=== PATIENT | female | born 1960 | race Caucasian/White ===

== ENCOUNTER 2017-11-29 06:37 | Day surgery (SDC) | payer OTHER, SELFPAY ==
[2017-11-19 10:21] VITALS: BMI 27.3
[2017-11-29] VITALS (8 sets, daily range): BP systolic 114–136; BP diastolic 69–76; PULSE 68–95; RESP 14–20; TEMP 36.2–36.6; O2SAT 94–99; BMI 27.3
[2017-11-29] MEDS: LACTATED RINGERS 1,000 ML 42 ML IV ×2 (07:21→09:21)
--- NOTE | 2017-11-29 07:37 | PM.PREOP ---
Pre-operative Note Interval Note Pre-op Check: Yes History & Physical Reviewed by Physician Changes: No
--- NOTE | 2017-11-29 07:39 | P.OP_ITS ---
Operative Date/Time/Diagnoses Date of procedure: 11/29/17 Pre-op diagnosis: Left hallux abductovalgus with bunion, great toe arthritis, second and third hammertoes Post-op diagnosis: same Procedure & Clinicians Surgeon: Amy Farooq Click Yes if Unassisted: Yes Operative Notes Findings: Closure Type: primary Specimen(s): none sent Implants & Drains: [place] Medium MTP plate, 4.2 and 3.5 screws, 0.054 k-wires x2 MTF 1cc DBX putty 3-4, 4-0 vicryl, 3-0, 4-0 nylon Estimated Blood Loss (mL): 30 Blood products transfused: none Procedure in detail: The patient was brought to the operating room and placed on the operative table in the supine position well-padded and appropriately aligned. A tourniquet was placed about the patient's left thigh. After induction of general anesthesia the foot and ankle were prepped and draped in the usual aseptic manner. After a check of anesthesia the TQ was inflated and an incision was made over the first metatarsophalangeal joint. The incision was deepened through subcutaneous tissues being careful to identify and retract all neuro and vascular structures. All bleeders were cauterized and ligated as necessary. First MTPJ release was performed to allow for mobility of the joint. Significant loss of cartilage was noted to the 1st metatarsal head and to the base of the proximal phalanx. A Reamer set was used to remove the cartilage on either side and it was noted that there was some softening of the bone on the 1st metatarsal section. Rongeur was used to reduce the remaining overhang and also saw was used to remove the medial eminence of the 1st metatarsal head. A temporary guidewire was placed across for fixation and this was noted on fluoroscopy to be in good alignment. Next the plate was contoured appropriately and placed in the leg was placed in the standard AO technique across the of 1st metatarsophalangeal joint with good positioning and strength. Next using standard technique the screws were placed in each of the corresponding holes and alignment was good and this was checked on fluoroscopy in all 3 planes. Any temporary guidewires were removed at that point and we moved the procedure next to the 2nd and 3rd toes. Once the 2nd toe was begun it was noted that the screws had stayed in place with the proximal phalangeal plate on the hallux however the bone around it was so soft that it lost its structure. Attention was then redirected to the 1st MTPJ and all screws and plate were removed. It was determined that a slightly longer plate would be appropriate and we were able to use the ABX bone putty in the prior site of the screw hole. I was able to realign it in very good alignment and the decision was made to lag across the plate in the holes rather than attempt a 2nd lag screw due to the significant softening of the bone. Some prior holes were able to be used proximally but the 1st holes placed were distally showing good alignment and good apposition of the attempted fusion site. We did not place a screw in the hole that had been compromised and new holes were drilled distally. Again this was checked on C-arm and noted to be strong and in good alignment. Next we addressed the 2nd and 3rd rays. An incision was made over the dorsal digit extending proximal to the metatarsal head. The incision was deepened through subcutaneous tissues being careful to identify and retract all neurovascular structures. All bleeders were cauterized and ligated as necessary. The extensor at the PIPJ was transected reflected proximally and distally and a saw was used to resect the proximal phalangeal head as well as the base of the intermediate phalanx. A capsulotomy was performed to the 2nd MTPJ and there was complete loss of cartilaginous surface of the 2nd metatarsal head. It was able to be mobilized after the use of a McGlamry elevator but this was the determining factor as to the decision of not performing the metatarsal osteotomy. Extensor tendon lengthening was performed and a 0.054 K- wire was placed in the intermediate phalanx driven out distally to the tip of the toe and then retrograded proximally into the proximal phalanx and under careful watch of fluoroscopy placed across the metatarsophalangeal joint. This was checked on fluoroscopy and noted to be in good alignment and good compression at the PIPJ. Excess wire was trimmed at the tip and a safety placed over it. The the area was irrigated copious amounts of normal sterile saline. The extensor tendon was repaired using Vicryl as was the extensor over the PIPJ. The same procedure was performed to the 3rd toe and metatarsophalangeal joint with the same amount of complete loss of cartilage to the 3rd metatarsal head. A portion of the way during the procedure the tourniquet was deflated and let down for approximately 15 min and then reinflated. Please see the nurse's notes for complete details on tourniquet times. After the tourniquet was let down for the 2nd time the prompt hyperemic a prompt hyperemic response was seen to the foot. Vicryl was used to close close subcutaneous tissues nylon to the skin and the tips of the pins X attending out the 2nd and 3rd toes were covered with bacitracin. Sterile dressing was placed on the foot and she was transferred into the PACU with vital signs stable and vascular status intact. Complications: other Condition: stable Disposition: PACU Plan for aftercare: Following a period of postoperative monitoring the patient be discharged home on written and oral postop instructions including keeping the dressing dry and intact at no ambulation to the foot, icing and elevating the foot when seated at home. DVT prevention techniques have been reviewed. Her 1st postoperative visit will be a dressing change and close to the week 4 we 'll get her x-ray. Likely nonweightbearing approximately 6 weeks.
[2017-11-29] MEDS: CLINDAMYCIN 600 MG/50 ML PIGGYBACK 50 MG IV (07:55)
--- NOTE | 2017-11-29 08:30 | SUR.OPER ---
Supine on padded OR bed, head on pillow, arms secured on padded arm boards at <90 degrees abduction, legs uncrossed, safety belt at abdomen tape over blanket over non operative leg.
[2017-11-29] MEDS: BUPIVACAINE 0.5% (PF) VIAL 30 ML INJ (08:41)
--- NOTE | 2017-11-29 11:53 | SUR.PHASEII ---
Pt sitting up. Denied pain. Drsg CDI, shoe in place, LLT elevated. Family present, call light within reach.
--- NOTE | 2017-11-29 13:34 | SUR.PHASEII ---
pt states she is ready to go home . Pt d/eugene with her and in a wheelchair. denies any complaints
== END 2017-11-29 13:36 | disposition home or self-care (01) ==
PROVIDERS: Family Provider Physician Assistant Medical; PCP Physician Assistant Medical; Visit Provider Podiatrist
PROC: (CPT 28285; 2017-11-29 07:45)
PROC: (CPT 28750; 2017-11-29 07:45)
DX: M20.12 Hallux valgus (acquired), left foot (principal); M20.42 Other hammer toe(s) (acquired), left foot; Z87.891 Personal history of nicotine dependence
CPT/HCPCS: 28750; 28285 ×2; J1100; J1170; J2405; J2704; J3010

== ENCOUNTER → 2021-09-22 15:21 | Outpatient (CLI) | payer OTHER, SELFPAY ==
[2021-09-22 17:15] LABS: COVID19 -Nasal RAPID Negative (Negative)
== END ==
PROVIDERS: Family Provider Physician Assistant Medical; PCP Physician Assistant Medical; Visit Provider Surgery
DX: Z20.822 Contact with and (suspected) exposure to COVID-19 (principal); Z01.812 Encounter for preprocedural laboratory examination
CPT/HCPCS: 87635; C9803

== ENCOUNTER 2021-09-25 09:08 | Day surgery (SDC) | payer OTHER, SELFPAY ==
[2021-09-25 09:42] VITALS: BMI 31.1
[2021-09-25 09:54] VITALS: BP 137/74; PULSE 82; RESP 16; TEMP 36.8; O2SAT 99
[2021-09-25] MEDS: LACTATED RINGERS 1,000 ML 84 ML IV (09:59)
--- NOTE | 2021-09-25 10:09 | PM.OP.COLON ---
Operative Date/Time/Diagnoses Date of procedure: 09/25/21 Time of procedure: 10:09 Pre-op diagnosis: colon cancer screening Post-op diagnosis: same Procedure & Clinicians Study performed: colonoscopy Same procedure as scheduled: Yes Indications: colon Surgeon: Chelsi Casey Procedure Notes SCOAP/Timeout: done Procedure in detail: Prep diagnosis: Colon cancer screening Postop diagnosis: Same Operative procedure: Colonoscopy with moderate sedation Findings: No polyps identified, no large masses. No significant diverticulosis. However her bowel prep was poor and inadequate in small portions where a polyp could have been overlooked. Definitely no masses greater than 0.5 cm. Surgeon: Deedee Casey MD Anesthetic: See nurse's note for dosing Procedure: Patient placed in lateral position. Rectal exam performed showing normal tone no masses. Colonoscope inserted into the rectum and advanced to ileocecal valve with minimal difficulty. Insufflation extraction scope with the above findings. Impression: Inadequate prep in small areas of the colon where a polpy less than 0.5 cm could have been missed. Otherwise no polyps no diverticulosis Plan: I feel comfortable doing a 10 year recall unless otherwise indicated by change in clinical condition Sedation minutes: 20 Specimen(s): none sent Complications: none Impression: No polyps, no diverticula identified Post-procedure Recommendations: Colonoscopy in 10 years Plan for aftercare: Home Follow up: as needed Disposition: PACU
--- NOTE | 2021-09-25 10:10 | PM.HP.1 ---
History of Present Illness History of Present Illness Date Patient Seen: 09/25/21 Time Patient Seen: 10:10 Chief complaint: SCREENING COLONOSCOPY Narrative: colon cancer screening. Last scope was around 10 years ago. No family history or symptoms of concern today. Patient History Medical History Anxiety Bipolar disorder Bruises easily Endometriosis Former smoker Hallux valgus of left foot Hallux valgus with bunions of left foot Hammertoe of left foot Hammertoe of left foot History of headache History of idiopathic thrombocytopenic purpura Impaired vision Left foot pain Nocturia Raynauds disease Skin lesions Systemic lupus TBI (traumatic brain injury) Surgical History History of colonoscopy History of partial hysterectomy History of total knee arthroplasty Family & Social History Social History: household members spouse Tobacco & Substance use: Smoking Status Former smoker alcohol intake never Substance Use Type marijuana Meds Home Medications and Allergies Home Medications Medication Instructions Recorded Confirmed Type amlodipine 5 mg tablet (Norvasc) 5 mg PO QDAY #0 10/24/16 09/25/21 History atomoxetine 25 mg capsule 25 mg PO QDAY #0 10/24/16 09/25/21 History (Strattera) lamotrigine 200 mg tablet 100 mg PO BEDTIME #0 10/24/16 09/25/21 History pilocarpine HCl 5 mg tablet 5 mg PO BID #0 10/24/16 09/25/21 History quetiapine 100 mg tablet (Seroquel) 25 mg PO HS #0 10/24/16 09/25/21 History sertraline 100 mg tablet (Zoloft) 50 mg PO DAILY 11/29/17 09/25/21 History Allergies Allergy/AdvReac Type Severity Reaction Status Date / Time Sulfa (Sulfonamide Allergy Mild RASH Verified 09/25/21 09:38 Antibiotics) [SULFA (SULFONAMIDE ANTIBIOTICS)] amoxicillin [AMOXICILLIN] AdvReac Intermediate DIARRHEA Verified 09/25/21 09:38 peanut [PEANUT] AdvReac Intermediate HEADACHE Verified 09/25/21 09:38 Review of Systems Review of Systems ROS: Yes All systems reviewed with the patient and are negative except as otherwise documented Exam Vital Signs (past 8 hours): - 09/25/21 09:54 Temperature 98.2 F Pulse Rate 82 Respiratory Rate 16 Blood Pressure 137/74 Pulse Oximetry 99 Oxygen Delivery Method Room Air Const General: cooperative and anxious Nutritional Appearance: average body habitus HENMT Head: normal to inspection, normocephalic and atraumatic Eyes General: appearance normal, both eyes and all related structures Neck Neck: normal visual inspection, full ROM and trachea midline Chest Chest: normal inspection of the chest Resp Effort & Inspection: normal respiratory effort and able to speak in complete sentences Cardio Rate: tachycardic Rhythm: regular rhythm GI Inspection: normal to inspection Palpation: soft Skin General: atrophy Neuro General: patient alert and patient awake Cognition: normal cognition Speech: speech normal Extrem General: normal to inspection Psych Appearance: grossly normal Mental Status: mental status grossly normal Affect: animated Attitude: cooperative Judgment: judgment good Assessment & Plan Assessment & Plan narrative: Colon cancer screening with colonoscopy and moderate sedation COVID-19 COVID-19 status: Negative Time Spent With Patient Time with patient: less than 30 minutes Critical Care time: I spent a total of [] minutes of critical care time on this patient's care today; this time is exclusive of procedural time.
[2021-09-25] MEDS: MIDAZOLAM 5 MG/5 ML VIAL 7 MG IV (10:26)
[2021-09-25] MEDS: fentaNYL 250 MCG/5 ML INJ 125 MCG IV (10:29)
[2021-09-25 10:45] VITALS: BP 120/93; PULSE 78; RESP 18; TEMP 37; O2SAT 77
[2021-09-25 10:50] VITALS: BP 135/86; PULSE 82; RESP 18; O2SAT 98
[2021-09-25 10:55] VITALS: BP 127/68; PULSE 85; RESP 18; O2SAT 97
[2021-09-25 10:58] VITALS: BP 120/70; PULSE 83; RESP 18; O2SAT 99
--- NOTE | 2021-09-25 11:17 | SUR.PHASEII ---
09/25/[id number] contacted[address]on way here now. discharge instructions completed with patient . copy to patient. dressed self. met discharge criteria. 111-To Son, Kev's, car and care with all belongings.
== END 2021-09-25 11:16 | disposition home or self-care (01) ==
PROVIDERS: Family Provider Physician Assistant Medical; PCP Physician Assistant Medical; Referring Provider Surgery; Visit Provider Surgery
PROC: 0DJD8ZZ Inspection of Lower Intestinal Tract, Via Natural or Artificial Opening Endoscopic (ICD-10-PCS; CPT 45378; principal; 2021-09-25 10:15)
DX: Z12.11 Encounter for screening for malignant neoplasm of colon (principal)
CPT/HCPCS: 45378; 99152; J2250; J3010

== ENCOUNTER 2024-11-06 06:27 | Day surgery (SDC) | payer MEDICARE, OTHER, SELFPAY ==
--- NOTE | 2024-11-06 | PATH_ITS ---
[facility] Accession Number: [id number] No. of containers..04 Tissue . 01 Material submitted: . PART A: esophagus, E-G Junction - GE JUNCTION PART B: small bowel - ILEUM,TERMINAL PART C: colon - COLON, TRANSVERSE PART D: colon - COLON, SIGMOID POLYP . 01 Diagnosis: Part A: GE JUNCTION: Squamous mucosa with mild reactive changes suggestive of reflux. Eosinophils are not increased. . Part B: ILEUM,TERMINAL: Ileal mucosa with no diagnostic alterations. No active inflammation, granulomas, or dysplasia identified. . Part C: COLON, TRANSVERSE: Colonic mucosa with no diagnostic alterations. No active inflammation, granulomas, dysplasia, or malignancy identified. No evidence of colitis. . Part D: COLON, SIGMOID POLYP: Hyperplastic polyp. [facility] 11/16/2024 1417 Local . 01 Electronically signed: . Obey Anderson MD, Pathologist NPI- [id number] . 01 Gross description: . A. Received in formalin with two identifiers and GE junction biopsy, are four joshi soft tissue fragments, 0.2 to 0.3 cm in greatest dimension, submitted in A1. . B. Received in formalin with two identifiers and terminal ileum biopsy, are three joshi soft tissue fragments, 0.3 to 0.5 cm in greatest dimension, submitted in B1. . C. Received in formalin with two identifiers and transverse colon biopsy, are two joshi soft tissue fragments, 0.3 cm each in greatest dimension, submitted in C1. . D. Received in formalin with two identifiers and sigmoid colon polyp, are multiple joshi soft tissue fragments] admixed with debris aggregating to 0.8 x 0.4 x 0.2 cm. Filtered and submitted entirely in D1. ([id number]) /MRV 11/16/2024 1417 Local . 01 Microscopic: . Part A: GE JUNCTION: An ABPAS stain was performed to evaluate for fungal organisms and is negative. The control stains appropriately. . 01 Pathologist provided ICD-10: K21.00, K63.5 . 01 CPT . 798294, 435976, 184234, 376966, [id number] Specimen Comment: A courtesy copy of this report has been sent to [phone] Performed at: [address] [address] [address], [place], [place] [id number] MD Obey Anderson MD Phone: [phone]
[2024-11-06 07:01] VITALS: BP 140/79; PULSE 88; RESP 15; TEMP 36.1; O2SAT 97
--- NOTE | 2024-11-06 07:30 | PM.HP.IH.1 ---
History of Present Illness History of Present Illness Date Patient Seen: 11/06/24 Time Patient Seen: 07:30 Chief complaint: EGD/Colonoscopy Narrative: Patricia is a 64-year-old woman with a recent change in bowel habits including mucus and frothy in her stools. See the office note from September for details. [facility] Medical History Anxiety Bipolar disorder Bruises easily Endometriosis Former smoker Hallux valgus of left foot Hallux valgus with bunions of left foot Hammertoe of left foot Hammertoe of left foot History of headache History of idiopathic thrombocytopenic purpura Impaired vision Left foot pain Nocturia Raynauds disease Skin lesions Systemic lupus TBI (traumatic brain injury) Surgical History History of colonoscopy History of partial hysterectomy History of total knee arthroplasty Social History household members: spouse Smoking Status: Former smoker alcohol intake: never Meds Home Medications and Allergies Home Medications ?Medication ?Instructions ?Recorded ?Confirmed ?Type amlodipine 5 mg tablet (Norvasc) 5 mg PO QDAY ##0 10/24/16 11/06/24 History atomoxetine 25 mg capsule 25 mg PO QDAY ##0 10/24/16 11/06/24 History (Strattera) sertraline 100 mg tablet (Zoloft) 50 mg PO DAILY 11/29/17 11/06/24 History pilocarpine HCl 5 mg tablet 5 mg PO ONCE #0 tabs 09/29/24 11/06/24 History prednisone 1 mg tablet 5 mg PO DAILY 11/06/24 11/06/24 History Allergies Allergy/AdvReac Type Severity Reaction Status Date / Time Sulfa (Sulfonamide Allergy Mild RASH Verified 11/06/24 07:09 Antibiotics) (SULFA (SULFONAMIDE ANTIBIOTICS)) amoxicillin (AMOXICILLIN) AdvReac Intermediate DIARRHEA Verified 11/06/24 07:09 peanut (PEANUT) AdvReac Intermediate HEADACHE Verified 11/06/24 07:09 Exam Vital Signs (past 8 hours): - 11/06/24 07:01 Temperature 96.9 F L Pulse Rate 88 Respiratory Rate 15 Blood Pressure 140/79 Pulse Oximetry 97 Oxygen Delivery Method Room Air Oxygen Delivery Method Room Air Const General: No acute distress Assessment & Plan Assessment and plan (1) Change in bowel habits: Status: Acute Plan We will proceed with EGD and colonoscopy Time-Based Coding :: [TOTAL MINUTES] spent with patient and on the chart (including review of chart, obtaining history, exam, reviewing outside data, placing orders, documenting exam and treatment plan, and counseling patient) on [DATE]. 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
--- NOTE | 2024-11-06 08:14 | P.OP.EGD&C_ITS ---
Operative Date/Time/Diagnoses Date of procedure: 11/06/24 Time of procedure: 08:14 Pre-op diagnosis: Change in bowel habits Post-op diagnosis: same Procedure & Clinicians Study performed: EGD and colonoscopy Same procedure(s) as scheduled: Yes Surgeon: Mukesh Hernandez Procedure Notes Procedure in detail: Surgeon: Mukesh Hernandez MD Anesthesia: Kalani Torre CLIENT SUCCESS SPECIALIST Procedure in detail: A timeout was performed. A bite blocked was placed and monitors were attached to the patient. The patient was positioned in the left lateral decubitus position. Sedation was administered. Once the patient was sedated the endoscope was inserted through the bite block and passed through the esophagus and stomach and into the duodenum. Duodenum appeared normal. We then withdrew the scope into the stomach. The gastric mucosa appeared normal. The endoscope was retroflexed and no hiatal hernia was seen. The endoscope was straightned and withdrawn into the esophagus. There was some mild distal esophagitis and random biopsies were taken from the GE junction with cold forceps. EGD findings: Mild distal esophagitis Next we repositioned the patient for a colonoscopy. A digital rectal exam was performed and was normal. The colonoscope was inserted and advanced to the cecum. The appendiceal orifice was identified and photographed. The terminal ileum was intubated and no gross abnormality was visualized. Random biopsies were taken from the terminal ileal mucosa with cold forceps. The scope was slowly withdrawn over greater than 6 minutes. Random biopsies were taken from the transverse colon using cold forceps. There was a 5 mm polyp in the sigmoid colon removed with a cold snare. The scope was retroflexed in the rectum and no gross abnormalities were seen. Colonoscopy findings: 5 mm polyp in the sigmoid colon Total procedural EBL: 5 mL Scope withdrawal time: 11 minutes Sedation minutes: 25 minutes Post-procedure Disposition: PACU
[2024-11-06 08:17] VITALS: BP 113/57; BP 122/89; PULSE 80; PULSE 83; RESP 16; RESP 23; TEMP 36.3; O2SAT 97; O2SAT 98
[2024-11-06 08:21] VITALS: BP 127/61; PULSE 79; RESP 14; O2SAT 98
[2024-11-06] MEDS: LACTATED RINGERS 1,000 ML 42 ML IV (08:23)
[2024-11-06 08:26] VITALS: BP 124/64; PULSE 77; RESP 17; O2SAT 95
== END 2024-11-06 09:00 | disposition home or self-care (01) ==
PROVIDERS: Family Provider Physician Assistant Medical; PCP Physician Assistant Medical; Referring Provider Surgery; Visit Provider Surgery
PROC: 0DJ08ZZ Inspection of Upper Intestinal Tract, Via Natural or Artificial Opening Endoscopic (ICD-10-PCS; CPT 45385; principal; 2024-11-06 07:45)
PROC: 0DJD8ZZ Inspection of Lower Intestinal Tract, Via Natural or Artificial Opening Endoscopic (ICD-10-PCS; CPT 45378; 2024-11-06 07:45)
DX: K20.90 Esophagitis, unspecified without bleeding (principal); K63.5 Polyp of colon; R19.4 Change in bowel habit; Z87.891 Personal history of nicotine dependence
CPT/HCPCS: 45385; 45380; 43239; J2704